=== PATIENT | male | born 1940 | race Hispanic/Latino ===

== ENCOUNTER → 2019-07-01 | Outpatient (CLI) | payer OTHER | END | disposition home or self-care (01) | LOC: SHCH 08:16 | PROVIDERS: ATTEND Internal Medicine Cardiovascular Disease | DX: I06.0 Rheumatic aortic stenosis (principal); I10 Essential (primary) hypertension | CPT/HCPCS: 93306 ==

== ENCOUNTER → 2020-01-01 | Outpatient (CLI) | payer OTHER ==
[~2020-01-01] MED LIST: ADV250 IH; ALLO300T2 PO; AMLO-257 PO; ASPI-1022 PO; Allergy PO; BUDE10.2 IH; CLOP75TA14 PO; IOHEXOL-350 75 ML VIAL IV ONE; LEVO25TA54 PO; LISI40TA4 PO; METF-446 PO; METO50TA18 PO; OMEG100014 PO; SAW450CA7 PO; SIMV-43 PO; vitamin b12 PO; vitamin d PO
== END | disposition home or self-care (01) ==
LOC: RAH 07:28
PROVIDERS: ATTEND Internal Medicine Cardiovascular Disease
DX: I65.23 Occlusion and stenosis of bilateral carotid arteries (principal)
CPT/HCPCS: 70498; Q9967

== ENCOUNTER 2020-03-27 07:41 | Day surgery (SDC) | payer OTHER ==
[2020-03-25 12:32] LABS: EOSINOPHILS % (AUTO) 1.8 % (0.0-8.0); HEMATOCRIT 38.5 % (42-54); LYMPHOCYTES % (AUTO) 33.5 % (21.0-51.0); MEAN CORPUSCULAR HEMOGLOBIN 32.1 pg (27.0-33.0); MEAN CORPUSCULAR HGB CONC 33.8 g/dL (32.0-36.0); MEAN CORPUSCULAR VOLUME 95.1 fL (79-99); NEUTROPHILS % (AUTO) 55.1 % (40.0-77.0); PLATELET COUNT (AUTO) 217 K/uL (130-400); RED BLOOD CELL COUNT(AUTO) 4.05 MIL/uL (4.50-6.20); WHITE BLOOD COUNT (AUTO) 8.3 K/uL (4.8-10.8)
[2020-03-25 12:43] LABS: APPEARANCE,URINE Clear (CLEAR); BILIRUBIN,URINE Negative (NEGATIVE); COLOR,URINE Yellow (YELLOW); GLUCOSE, URINE (UA) Negative (NEGATIVE); KETONES,URINE Negative (NEGATIVE); LEUKOCYTE ESTERASE ,URINE Negative (NEGATIVE); NITRATE,URINE Negative (NEGATIVE); OCCULT BLOOD,URINE Negative (NEGATIVE); PROTEIN,URINE Negative (NEGATIVE); UROBILINOGEN,URINE 0.2 mg/dL (0.2-1.0)
[2020-03-25 12:45] LABS: INR 0.92 (0.85-1.15); PARTIAL THROMBOPLASTIN TIME 27.6 SEC (26.3-35.5); POTASSIUM 4.3 mmol/L (3.5-5.1)
[2020-03-27] VITALS (10 sets, daily range): BP systolic 130–149; BP diastolic 51–70
[~2020-03-27] VITALS: Ht 172.7 cm; Wt 79.8 kg
[~2020-03-27 07:41] MED LIST changes: -AMLO-257 PO; +AMLO5TAB9 PO; -IOHEXOL-350 75 ML VIAL IV ONE; -LEVO25TA54 PO; -METF-446 PO
[2020-03-27] MEDS ORDERED: METF-446 PO (09:33)
[2020-03-27] MEDS ORDERED: LEVO25TA54 PO (09:33)
[2020-03-27] MEDS ORDERED: SODIUM CHLORIDE 0.9% 1000ML 1,000 ML IV ONE (09:38)
[2020-03-27] MEDS ORDERED: IOHEXOL 350 MG/ML 100ML INFUS..BTL IV ONE (10:29)
[2020-03-27] MEDS ORDERED: IOHEXOL-350 50ML VIAL IV ONE ×2 (10:29→12:23)
[2020-03-27] MEDS ORDERED: MEPERIDINE-PF 25 MG/ML SYG ONE (10:29)
[2020-03-27] MEDS ORDERED: MIDAZOLAM HCL 1 MG/ML 2ML VIAL ONE (10:29)
[2020-03-27] MEDS ORDERED: NITROGLYCERIN 2 MG/VIAL VIAL IV ONE (10:29)
[2020-03-27] MEDS ORDERED: SODIUM BICARB 50MEQ 50ML VIAL ONE (10:29)
[2020-03-27] MEDS ORDERED: HEPARIN SODIUM 1000UNIT/ML 10ML VIAL ONE (10:29)
[2020-03-27] MEDS ORDERED: LIDOCAINE HCL 2% 20ML ONE (10:30)
--- NOTE | 2020-03-27 11:15 | NUR ---
PROCEDURE PT TAKEN TO RECORDS AND T[employer] RECORDINGS ENGINEER VIA BED FOR SCHEDULED PROCEDURE.
[2020-03-27] MEDS ORDERED: GLUCAGON 1MG KIT 1 MG ML IM PRN (13:00)
[2020-03-27] MEDS ORDERED: DEXTROSE 50%-WATER 50 ML DISP.SYRIN IV PRN (13:00)
--- NOTE | 2020-03-27 13:25 | NUR ---
post op received pt back from [employer]. s/p right /lhc . left groin with dressing dry and intact, see post cath assessment. pt instructed to maintain bedrest for 6 hrs. plan of care discuss with patient. call light within reach.
[2020-03-27] MEDS ORDERED: KETOROLAC TROMETHAMINE 30MG/ML ONE (16:28)
[2020-03-27] MEDS ORDERED: INSULIN HUMULIN R 100 UNIT/ML 3ML SQ SCH (16:30)
[2020-03-27] MEDS ORDERED: KETOROLAC TROMETHAMINE 30MG/ML IV SCH (16:30)
--- NOTE | 2020-03-27 18:35 | NUR ---
PT AAOX3, NO DISTRESS. LT GROIN HAS NO ACTIVE BLEEDING OR HEMATOMA. PT HAS NO C/O PAIN TO GROIN SITE, DRESSING IS D/I. INSTRUCTIONS GIVEN TO SPOUSE VIA PHONE BY KLAUDIA Suarez RN. IV D/C CATHETER INTACT, PT DRESSED WITH ASSISTANCE, PT TAKEN OUT IN W/C DRIVEN HOME BY SPOUSE. PT STABLE. PERSONAL BELONGINGS WITH PT.
== END 2020-03-27 18:38 | disposition home or self-care (01) ==
LOC: DAH 07:41
PROVIDERS: ATTEND Internal Medicine Cardiovascular Disease
DX: I25.10 Atherosclerotic heart disease of native coronary artery without angina pectoris (principal); I65.23 Occlusion and stenosis of bilateral carotid arteries; I35.0 Nonrheumatic aortic (valve) stenosis; I10 Essential (primary) hypertension; E78.5 Hyperlipidemia, unspecified; E11.9 Type 2 diabetes mellitus without complications; J44.9 Chronic obstructive pulmonary disease, unspecified; M54.12 Radiculopathy, cervical region; Z88.8 Allergy status to other drugs, medicaments and biological substances; Z79.899 Other long term (current) drug therapy; Z79.01 Long term (current) use of anticoagulants; Z79.82 Long term (current) use of aspirin; Z79.84 Long term (current) use of oral hypoglycemic drugs
CPT/HCPCS: 36223; 36415; 71045; 80048; 81003; 82948 ×3; 85025; 85610; 85730; 93005; 93460; A4215; A4221; A4222; A4223; A4663; C1760; C1769 ×2; C1893; C1894 ×2; J1644; J1885; J3490 ×3; J7030; Q9965; Q9967 ×3; J2175; J2250

== ENCOUNTER → 2020-04-06 | Outpatient (CLI) | payer OTHER ==
[~2020-04-06] MED LIST changes: +LEVO25TA54 PO; +METF-446 PO
[2020-04-06 13:40] LABS: CREATININE 1.2 mg/dL (0.5-1.5)
== END | disposition home or self-care (01) ==
LOC: LAB 11:43
PROVIDERS: ATTEND Internal Medicine Cardiovascular Disease
DX: I35.0 Nonrheumatic aortic (valve) stenosis (principal); I65.21 Occlusion and stenosis of right carotid artery
CPT/HCPCS: 36415; 82565; 84520

== ENCOUNTER → 2020-04-27 | Outpatient (CLI) | payer OTHER ==
[~2020-04-27] MED LIST changes: +IOHEXOL 350 MG/ML 100ML INFUS..BTL IV ONE
== END | disposition home or self-care (01) ==
LOC: RAH 09:40
PROVIDERS: ATTEND Internal Medicine Cardiovascular Disease
DX: I77.4 Celiac artery compression syndrome (principal); K40.90 Unilateral inguinal hernia, without obstruction or gangrene, not specified as recurrent; K55.1 Chronic vascular disorders of intestine; K80.20 Calculus of gallbladder without cholecystitis without obstruction; J98.11 Atelectasis; I70.0 Atherosclerosis of aorta; J98.4 Other disorders of lung; I51.7 Cardiomegaly; I65.21 Occlusion and stenosis of right carotid artery; I35.1 Nonrheumatic aortic (valve) insufficiency
CPT/HCPCS: 74174; 75574; Q9967

== ENCOUNTER → 2020-06-15 | Outpatient (CLI) | payer OTHER ==
[~2020-06-15] MED LIST changes: +AMLO-257 PO; -AMLO5TAB9 PO; -IOHEXOL 350 MG/ML 100ML INFUS..BTL IV ONE
== END | disposition home or self-care (01) ==
LOC: SHCH 13:15
PROVIDERS: ATTEND Internal Medicine Cardiovascular Disease
DX: I34.0 Nonrheumatic mitral (valve) insufficiency (principal); R55 Syncope and collapse; I49.5 Sick sinus syndrome; Z95.2 Presence of prosthetic heart valve
CPT/HCPCS: 93306; 93356

== ENCOUNTER 2020-11-02 13:00 | Inpatient (IN) | payer OTHER ==
[~2020-11-02] VITALS: Ht 175.3 cm; Wt 82.8 kg
[2020-11-02 11:17] VITALS: BP 154/66
[2020-11-02 12:51] LABS: BASOPHILS % (AUTO) 0.9 % (0.0-5.0); EOSINOPHILS % (AUTO) 1.7 % (0.0-8.0); HEMATOCRIT 39.9 % (42-54); LYMPHOCYTES % (AUTO) 22.1 % (21.0-51.0); MEAN CORPUSCULAR HEMOGLOBIN 30.4 pg (27.0-33.0); MEAN CORPUSCULAR HGB CONC 33.3 g/dL (32.0-36.0); MEAN CORPUSCULAR VOLUME 91.3 fL (79-99); PLATELET COUNT (AUTO) 187 K/uL (130-400); RED BLOOD CELL COUNT(AUTO) 4.37 MIL/uL (4.50-6.20); RED CELL DISTRIBUTION WIDTH 13.2 % (11.0-15.5); WHITE BLOOD COUNT (AUTO) 8.8 K/uL (4.8-10.8)
[2020-11-02 12:57] LABS: ALBUMIN 3.9 g/dL (3.5-5.0); BILIRUBIN,TOTAL 1.4 mg/dL (0.2-1.0); CREATININE 1.2 mg/dL (0.5-1.5); POTASSIUM 3.9 mmol/L (3.5-5.1); TOTAL PROTEIN, SERUM 7.6 g/dL (6.0-8.3)
[~2020-11-02 13:00] MED LIST changes: -LISI40TA4 PO; +LISI40TA9 PO
[2020-11-02 13:07] LABS: HEMOGLOBIN A1C 7.3 % (4.0-6.0)
[2020-11-02 13:11] LABS: INR 1.02 (0.85-1.15); PARTIAL THROMBOPLASTIN TIME 24.9 SEC (26.3-35.5); PROTHROMBIN TIME 10.6 SEC (9.6-11.6)
[2020-11-04] VITALS (25 sets, daily range): BP systolic 97–156; BP diastolic 45–78
[2020-11-04] MEDS ORDERED: CLINDAMYCIN IVPB 900MG/50ML 50 ML IV SCH (06:00)
[2020-11-04] MEDS ORDERED: 0.9%NACL 1000ML 1,000 ML IV ONE (07:41)
[2020-11-04] MEDS ORDERED: ASCO500C18 PO (09:27)
[2020-11-04] MEDS ORDERED: FISH1CAP63 PO (09:27)
[2020-11-04] MEDS ORDERED: METO50TA18 PO (09:27)
[2020-11-04] MEDS ORDERED: FLUT16H NASAL (09:27)
[2020-11-04] MEDS ORDERED: DICL20GE TP (09:27)
[2020-11-04] MEDS ORDERED: ALLO300T2 PO (09:27)
[2020-11-04] MEDS ORDERED: METF-444 PO (09:27)
[2020-11-04] MEDS ORDERED: ZINC220T4 PO (09:27)
[2020-11-04] MEDS ORDERED: LORA10TA7 PO (09:27)
[2020-11-04] MEDS ORDERED: SAW450CA7 PO (09:27)
[2020-11-04] MEDS ORDERED: CHOL2000 PO (09:27)
[2020-11-04] MEDS ORDERED: LIDOCAINE PF 100MG/5ML (2%) SYRINGE 5ML ONE ×2 (10:28→10:30)
[2020-11-04] MEDS ORDERED: SUCCINYLCHOLINE 200MG/10ML SYR ONE (10:28)
[2020-11-04] MEDS ORDERED: DEXAMETHASONE SOD PHOSPHATE 10MG/ML 1ML VIAL ONE ×2 (10:28→10:30)
[2020-11-04] MEDS ORDERED: PROPOFOL 10 MG/ML 20ML VIAL IV ONE (10:29)
[2020-11-04] MEDS ORDERED: MIDAZOLAM HCL 1 MG/ML 2ML VIAL ONE (10:29)
[2020-11-04] MEDS ORDERED: ONDANSETRON 4MG INJ ONE (10:31)
[2020-11-04] MEDS ORDERED: GLYCOPYRROLATE 1 MG/5 ML SYRINGE ONE (10:31)
[2020-11-04] MEDS ORDERED: ROCURONIUM 10MG/1ML SYR 10 MG/ML ML ONE (10:31)
[2020-11-04] MEDS ORDERED: FENTANYL CITRATE PF 50 MCG/1 ML 2ML VIAL ONE (10:31)
[2020-11-04] MEDS ORDERED: NEOSTIGMINE 5MG/5ML SYR IV ONE (10:31)
[2020-11-04] MEDS ORDERED: PHENYLEPHRINE HCL 10 MG/ML 1ML VIAL IV ONE (10:33)
[2020-11-04] MEDS ORDERED: EPHEDRINE SULFATE 50 MG/ML AMPULE ONE (10:33)
[2020-11-04] MEDS ORDERED: KETAMINE 50MG/ML SYRINGE 50 MG/ML DISP.SYRIN IV ONE (10:44)
[2020-11-04] MEDS ORDERED: ALBUMIN (HUMAN) 25% 100 ML IV ONE (10:45)
[2020-11-04] MEDS ORDERED: PROTAMINE SULFATE 10 MG/ML 5 ML VIAL ONE (12:09)
[2020-11-04] MEDS ORDERED: HEPARIN 10,000 UNIT/10ML (1,000 UNIT/ML) VIAL ONE (12:09)
[2020-11-04] MEDS ORDERED: LIDOCAINE HCL 1% 20 ML VIAL ONE (12:15)
[2020-11-04] MEDS ORDERED: CEFAZOLIN SODIUM 1 GM VIAL ONE (12:17)
[2020-11-04] MEDS ORDERED: TRAMADOL HCL 50 MG TABLET PO PRN (12:30)
[2020-11-04] MEDS ORDERED: ACETAMINOPHEN 325 MG TAB PO PRN ×2 (12:30)
[2020-11-04] MEDS ORDERED: LABETALOL 20MG VIAL IV ONE (12:50)
[2020-11-04] MEDS: TRAMADOL HCL 50 MG TABLET PO PRN (18:15)
[2020-11-04] MEDS: CEFAZOLIN SODIUM 1 GM VIAL IVP SCH (19:58)
[2020-11-04] MEDS ORDERED: FLUTICASONE PROPIONATE 50MCG/SPRAY 16 GM BOTTLE NS SCH (21:00)
[2020-11-04] MEDS: METOPROLOL TARTRATE 50 MG TAB PO SCH (21:44)
[2020-11-04] MEDS: METFORMIN HCL 500 MG TABLET PO SCH (21:44)
[2020-11-05] VITALS (10 sets, daily range): BP systolic 130–156; BP diastolic 56–73
[2020-11-05] MEDS: CEFAZOLIN SODIUM 1 GM VIAL IVP SCH ×2 (04:21→13:38)
[2020-11-05] MEDS: METFORMIN HCL 500 MG TABLET PO SCH (08:44)
[2020-11-05] MEDS ORDERED: AMLODIPINE 5 MG TAB PO SCH (09:00)
[2020-11-05] MEDS ORDERED: LEVOTHYROXINE 25 MCG TABLET PO SCH (09:00)
[2020-11-05] MEDS ORDERED: SIMVASTATIN 20 MG TABLET PO SCH (09:00)
[2020-11-05] MEDS ORDERED: LORATADINE 10 MG TABLET PO SCH (09:00)
[2020-11-05] MEDS ORDERED: ALLOPURINOL 300 MG TABLET PO SCH (09:00)
[2020-11-05] MEDS ORDERED: CLOPIDOGREL 75MG TAB PO SCH (09:00)
[2020-11-05] MEDS ORDERED: ASPIRIN 81 MG EC TAB PO SCH (09:00)
[2020-11-05] MEDS ORDERED: LISINOPRIL 40 MG TABLET PO SCH (09:00)
[2020-11-05] MEDS ORDERED: ONDANSETRON 4MG INJ IVP SCH (09:15)
[2020-11-05] MEDS: METOPROLOL TARTRATE 50 MG TAB PO SCH (10:07)
[2020-11-05] MEDS: TRAMADOL HCL 50 MG TABLET PO PRN (13:55)
== END 2020-11-05 18:15 | disposition home or self-care (01) | DRG 39 ==
LOC: DAHIP 11-04 06:22 → 2DH 11-04 13:42
PROVIDERS: ADMIT Thoracic Surgery (Cardiothoracic Vascular Surgery); ATTEND Thoracic Surgery (Cardiothoracic Vascular Surgery)
PROC: 03CK0ZZ Extirpation of Matter from Right Internal Carotid Artery, Open Approach (ICD-10-PCS; principal; 2020-11-04 11:45)
DX: I65.21 Occlusion and stenosis of right carotid artery (principal); E11.9 Type 2 diabetes mellitus without complications; I10 Essential (primary) hypertension; I45.10 Unspecified right bundle-branch block; I35.0 Nonrheumatic aortic (valve) stenosis; I25.10 Atherosclerotic heart disease of native coronary artery without angina pectoris; I77.1 Stricture of artery; E78.5 Hyperlipidemia, unspecified; E03.9 Hypothyroidism, unspecified; K21.9 Gastro-esophageal reflux disease without esophagitis; J44.9 Chronic obstructive pulmonary disease, unspecified; Z20.822 Contact with and (suspected) exposure to COVID-19; Z88.8 Allergy status to other drugs, medicaments and biological substances; Z95.0 Presence of cardiac pacemaker; Z79.02 Long term (current) use of antithrombotics/antiplatelets; Z79.82 Long term (current) use of aspirin; Z79.84 Long term (current) use of oral hypoglycemic drugs; Z79.899 Other long term (current) drug therapy; Z95.2 Presence of prosthetic heart valve
CPT/HCPCS: 36415; 71046; 80053; 82948; 83036; 85025; 85610; 85730; 86850; 86900; 86901; 87426; 88304; 88311; 93005; G0378; J0330; J0690; J1100; J1644; J2001; J2250; J2370; J2405; J2704; J2710; J2720; J3010; J3490; J7030; P9047; U0003